=== PATIENT | male | born 1985 | race Caucasian/White ===

== ENCOUNTER 2017-01-07 02:02 | Emergency (ER) | payer OTHER ==
[2017-01-07 02:14] VITALS: BP 145/79; PULSE 71; RESP 14; TEMP 98.3; O2SAT 100
--- NOTE | 2017-01-07 02:22 | C.PDOC ---
History Of Present Illness 31 year old male presents to the ED with complaints of having a strange feeling in the right side back of his head after turning his head sharply to the right. pt sts he turned head quickly, then felt a pain/discomfort in back of head on right side, started at 9 pm in a dimly lit restaurant and got better when he left the restaurant. pt felt lightheaded as well for a short time, and felt some limited palpitations, now resolved. pt reports symptoms of head discomfort and lightheadedness have mostly resolved at this time. pt denies any nausea, fever, vomiting, neck stiffness, chest pain. no numbness or tingling., no extremity weakness. Time Seen by Provider: 01/07/17 02:17 Chief Complaint (Nursing): Dizziness/Lightheaded History Per: Patient History/Exam Limitations: no limitations Onset/Duration Of Symptoms: Hrs Current Symptoms Are (Timing): Still Present Past Medical History Reviewed: Historical Data, Nursing Documentation, Vital Signs Vital Signs: Last Vital Signs Temp 98.3 F 01/07/17 02:10 Pulse 71 01/07/17 02:10 Resp 14 01/07/17 02:10 BP 145/79 01/07/17 02:10 Pulse Ox 100 01/07/17 22:32 Family History: States: Unknown Family Hx - Social History Hx Alcohol Use: No Hx Substance Use: No - Immunization History Hx Tetanus Toxoid Vaccination: Yes Hx Influenza Vaccination: No Hx Pneumococcal Vaccination: No Review Of Systems Constitutional: Negative for: Fever Cardiovascular: Positive for: Palpitations (have resolved ), Light Headedness. Negative for: Chest Pain Gastrointestinal: Negative for: Nausea, Vomiting Neurological: Negative for: Weakness, Numbness, Headache, Dizziness Physical Exam - Physical Exam Appears: Non-toxic, No Acute Distress Skin: Warm, Dry Head: Atraumatic, Normacephalic Eye(s): bilateral: Normal Inspection, PERRL, EOMI Oral Mucosa: Moist Throat: Normal Neck: Normal ROM, No Midline Cervical Tenderness, No Paracervical Tenderness, Supple, Other (no jvd, no carotid bruit) Chest: Symmetrical, No Deformity Cardiovascular: Rhythm Regular, No Murmur Respiratory: Normal Breath Sounds, No Rales, No Rhonchi, No Wheezing Gastrointestinal/Abdominal: Soft, No Tenderness Extremity: Normal ROM, No Tenderness, Capillary Refill (good capillary refill, less than two seconds ), No Deformity, No Swelling Neurological/Psych: Oriented x3, Normal Speech, Normal Cognition, Normal Cranial Nerves, Normal Motor, Normal Sensation ED Course And Treatment O2 Sat by Pulse Oximetry: 100 (RA) Progress Note: The patient declines to have further medical evaluation and treatment and wishes to leave the Emergency Department. This action is against my medical advice to the patient, and with informed refusal. The patient was told that evaluation and treatment are necessary and a full explanation of the rationale was given. The risks of leaving were explained to the patient and include, but are not limited to, worsening of known or currently unknown conditions, permanent disability and from undiagnosed or untreated conditions The patient has the capacity to make this informed decision and understands the clinical situation and my explanation of the risks of leaving. The patient voluntarily accepts these risks, and a signed AMA form documenting our conversation was obtained. The patient was given the opportunity to ask questions and reconsider. The patient was encouraged to return to the Emergency Department at any time for further care. Medical Decision Making Medical Decision Making: case discussed with Dr Diane; Dr Diane spoke with patient as well. pt offered bloodwork and catscan; pt declines both, says he feels 95 % better and wants to leave, while in presence of . pt will leave against medical advice and understands risks and consequences of doing so, including and/or permanent disability. Disposition Counseled Patient/Family Regarding: Diagnosis, Need For Followup - Disposition Referrals: [facility] [Outside] Disposition: AGAINST MEDICAL ADVICE Disposition Time: 03:27 Condition: STABLE Additional Instructions: Follow up with your pmd or in clinic as soon as possible. Feel free to return to ER at any time for further evaluation of lightheadedness. Instructions: Lightheadedness (ED) Forms: [facility] (Sinhala), General Discharge Instructions - Clinical Impression Clinical Impression: Lightheadedness - PA / CERTIFIED HAND THERAPIST / Resident Statement MD/DO has reviewed & agrees with the documentation as recorded. - Scribe Statement The provider has reviewed the documentation as recorded by the Scribe Mikki King All medical record entries made by the Scribe were at my direction and personally dictated by me. I have reviewed the chart and agree that the record accurately reflects my personal performance of the history, physical exam, medical decision making, and the department course for this patient. I have also personally directed, reviewed, and agree with the discharge instructions and disposition.
== END 2017-01-07 03:36 | disposition left against medical advice (07) ==
LOC: C.ER 02:02 → EDBD 02:02 → C.ER 03:36
DX: R42 Dizziness and giddiness (principal)